=== PATIENT | female | born 1960 | race Caucasian/White ===

== ENCOUNTER 2016-08-15 13:57 | Emergency (ER) | payer OTHER ==
[~2016-08-15] VITALS: Ht 170.2 cm; Wt 68.7 kg
[~2016-08-15 13:57] MED LIST: ACET-1600 PO; IBUP200T64 PO; MULT-516 PO
[2016-08-15 14:06] VITALS: BP 142/85
[2016-08-15] MEDS ORDERED: DIAZEPAM 5 MG TABLET ONE (16:06)
[2016-08-15] MEDS ORDERED: ACETAMINOPHEN 500 MG TABLET ONE (16:10)
[2016-08-15 16:16] LABS: BLOOD UREA NITROGEN 13 mg/dL (7-18)
[2016-08-15] MEDS ORDERED: DIAZEPAM 5 MG TABLET PO ONE (16:30)
[2016-08-15] MEDS ORDERED: ACETAMINOPHEN 500 MG TABLET PO ONE (16:30)
== END 2016-08-15 17:27 | disposition home or self-care (01) ==
LOC: ED 17:21
DX: M51.34 Other intervertebral disc degeneration, thoracic region (principal); M47.894 Other spondylosis, thoracic region
CPT/HCPCS: 36415; 72072; 80048; 81003; 82040; 85025; 93005; 99285

== ENCOUNTER 2017-05-03 09:57 | Day surgery (SDC) | payer OTHER ==
[~2017-05-03] VITALS: Ht 171.4 cm; Wt 67.3 kg
[2017-05-03 10:20] VITALS: BP 133/77
[2017-05-03] MEDS ORDERED: SODIUM CHLORIDE 0.9% 1,000 ML IV ONE (10:30)
[2017-05-03] MEDS ORDERED: PLEASE ENTER HEIGHT AND WEIGHT MC SCH (10:30)
[2017-05-03] MEDS ORDERED: ACET-1600 PO (10:32)
[2017-05-03] MEDS ORDERED: ASPI-496 PO (10:32)
[2017-05-03] MEDS ORDERED: DIAZ5TAB PO (10:32)
[2017-05-03] MEDS ORDERED: METO25TA2 PO (10:34)
[2017-05-03] MEDS ORDERED: MAGN400T36 PO (10:34)
[2017-05-03] MEDS ORDERED: CYAN-10 PO (10:34)
[2017-05-03] MEDS ORDERED: PROPOFOL 10 MG/ML, 20ML ONE (12:50)
== END 2017-05-03 15:03 | disposition home or self-care (01) ==
LOC: CACL 09:57
PROVIDERS: ATTEND Internal Medicine Cardiovascular Disease
DX: Q23.1 Congenital insufficiency of aortic valve (principal); I34.0 Nonrheumatic mitral (valve) insufficiency; I36.1 Nonrheumatic tricuspid (valve) insufficiency; Z90.49 Acquired absence of other specified parts of digestive tract; Z96.653 Presence of artificial knee joint, bilateral; Z88.2 Allergy status to sulfonamides; Z88.6 Allergy status to analgesic agent; K21.9 Gastro-esophageal reflux disease without esophagitis; E55.9 Vitamin D deficiency, unspecified; Z90.721 Acquired absence of ovaries, unilateral; Z90.79 Acquired absence of other genital organ(s)
CPT/HCPCS: 93312; 93321; 93325; J2704

== ENCOUNTER 2019-08-07 23:53 | Emergency (ER) | payer MEDICARE ==
[~2019-08-07] VITALS: Ht 170.2 cm; Wt 72.4 kg
[~2019-08-07 23:53] MED LIST changes: +ASPI-496 PO; +CYAN-10 PO; +DIAZ5TAB PO; +MAGN400T36 PO; +METO25TA2 PO
[2019-08-08 00:30] LABS: BASOPHILS # (AUTO) 0.04 x10^3/uL (0-0.1); BASOPHILS % (AUTO) 1 % (0-1); EOSINOPHILS # (AUTO) 0.09 x10^3/uL (0-0.4); EOSINOPHILS % (AUTO) 1 % (1-7); LYMPHOCYTES # (AUTO) 2.73 x10^3/uL (1-3.4); LYMPHOCYTES % (AUTO) 36 % (22-44); MD NO; MEAN CORPUSCULAR HEMOGLOBIN 29.7 pg (27.0-34.8); MEAN CORPUSCULAR HGB CONC 33.2 g/dL (32.4-35.8); MEAN CORPUSCULAR VOLUME 89.6 fL (80-100); MEAN PLATELET VOLUME 8.4 fL (7.4-10.4); MONOCYTES # (AUTO) 0.67 x10^3/uL (0.2-0.8); MONOCYTES % (AUTO) 9 % (2-9); NEUTROPHILS # (AUTO) 3.99 x10^3/uL (1.8-6.8); NEUTROPHILS % (AUTO) 53 % (42-75); PLATELET COUNT 272 x10^3/uL (130-400); RED BLOOD COUNT 4.69 x10^6/uL (3.82-5.3); RED CELL DISTRIBUTION WIDTH 12.3 % (9.6-15.2)
[2019-08-08] MEDS ORDERED: SODIUM CHLORIDE FLUSH 10ML SYR IVF ONE (00:30)
[2019-08-08] MEDS ORDERED: ONDANSETRON 2MG/ML, 2ML IVPush ONE (00:30)
[2019-08-08] MEDS ORDERED: ASPIRIN 81 MG TABLET CHEW PO ONE (00:30)
[2019-08-08 00:39] LABS: CALCIUM 9.4 mg/dL (8.5-10.1); CHLORIDE 110 mmol/L (98-107)
[2019-08-08 00:48] LABS: ALANINE AMINOTRANSFERASE 21 U/L (12-78); ALBUMIN 3.8 g/dL (3.4-5.0); ALKALINE PHOSPHATASE 57 U/L (45-117); ANION GAP 5 mmol/L (5-15); BILIRUBIN,TOTAL 0.3 mg/dL (0.2-1.0); CREATININE 1.01 mg/dL (0.55-1.02); TOTAL PROTEIN 7.3 g/dL (6.4-8.2); TROPONIN I < 0.015 ng/mL (0.000-0.045)
--- NOTE | 2019-08-08 01:11 | NUR ---
Pt reports eating dinner at 1900. Pt then reports onset of sternal pressure at 1999 rated at 5/10. Pt states she took a dose of Tums with no change in pain. Pt then reports the pain improving to 3/10 some time after that. Pt reports sternal pressure with epigastric pain here. Pt denies SOB, fever, vomiting, diarrhea, dizziness, or diaphoresis with symptoms.
[2019-08-08] MEDS ORDERED: ASPIRIN 81 MG TABLET CHEW ONE (01:39)
[2019-08-08] MEDS ORDERED: ONDANSETRON 2MG/ML, 2ML ONE (01:39)
[2019-08-08] MEDS ORDERED: MAALOX/HYOSCYAMINE/LIDOCAINE 45 ML BTL ONE (01:39)
[2019-08-08] MEDS ORDERED: MAALOX/HYOSCYAMINE/LIDOCAINE 45 ML BTL PO ONE (02:00)
[2019-08-08 03:23] VITALS: BP 109/67
== END 2019-08-08 03:25 | disposition home or self-care (01) ==
LOC: ED 08-08 03:07
DX: K21.0 Gastro-esophageal reflux disease with esophagitis (principal); R07.1 Chest pain on breathing; K76.0 Fatty (change of) liver, not elsewhere classified; R93.5 Abnormal findings on diagnostic imaging of other abdominal regions, including retroperitoneum; Z90.89 Acquired absence of other organs; Z96.659 Presence of unspecified artificial knee joint; Z90.722 Acquired absence of ovaries, bilateral
CPT/HCPCS: 36415; 71045; 76700; 80053; 83690; 83735; 83880; 84436; 84443; 84484; 85025; 93005; 96374; 99285; J2405

== ENCOUNTER → 2019-08-20 | Outpatient (CLI) | payer MEDICARE ==
[~2019-08-20] MED LIST changes: +OMNIPAQUE 350 MG/ML, 100ML BOTTLE ONE
== END | disposition home or self-care (01) ==
LOC: CFH 12:58
PROVIDERS: ATTEND Internal Medicine Cardiovascular Disease
DX: Q23.1 Congenital insufficiency of aortic valve (principal); N95.0 Postmenopausal bleeding
CPT/HCPCS: 71275; 74174; Q9967

== ENCOUNTER 2019-10-02 07:38 | Outpatient (CLI) | payer MEDICARE ==
[~2019-10-02 07:38] MED LIST changes: -OMNIPAQUE 350 MG/ML, 100ML BOTTLE ONE; +REGADENOSON 0.4 MG/5 ML SYRINGE ONE
== END 2019-10-02 23:59 | disposition home or self-care (01) ==
LOC: CFH 07:38
PROVIDERS: ATTEND Internal Medicine Cardiovascular Disease
DX: R00.2 Palpitations (principal); R07.9 Chest pain, unspecified; Q23.1 Congenital insufficiency of aortic valve
CPT/HCPCS: 78452; 93017; A9502; J2785